=== PATIENT | female | born 1980 | race Hispanic/Latino ===

== ENCOUNTER 2017-02-21 18:42 | Emergency (ER) | payer OTHER ==
[~2017-02-21] VITALS: Ht 154.9 cm; Wt 145.4 kg
[2017-02-21 19:07] VITALS: BP 126/88; PULSE 75; RESP 20; O2SAT 99
--- NOTE | 2017-02-21 19:26 | ED.REPORT ---
HPI-Headache Date of Service February 21, 2017 ED Provider: Darrius BedoyaO. A 36 year old female with a history of migraines presents to the ED with a headache onset 11:00 this morning. Associated symptoms include photophobia, nausea, and vomiting. The patient denies fever, cough, or other symptoms. This headache is similar to previous migraines. Nursing Notes Stated Complaint: MIGRAINE, VOMITING Chief Complaint: Headache Nursing Notes Reviewed: Yes Allergies: Coded Allergies: No Known Allergies (Verified Allergy, Unknown, 10/13/04) Uncoded Allergies: No Known Allergies (Allergy, Unknown, 10/13/04) General Time Seen by MD: 19:25 Chief Complaint Headache Hx Obtained From: Patient Arrived By: Walk-in Sudden in Onset?: No Onset Occurred: 9 - 12 hours ago Symptom Duration: Since onset Location: : Generalized Quality: Painful Severity: Current: Moderate Severity: Maximum: Moderate Pertinent Negative: Relieved by nothing Related History: Reports: Headache, migraine hx Recent Healthcare: No recent doctor visit Similar Sx Previous: Yes Past Medical History Past Medical History Migraines Past Surgical History Reports: Cholecystectomy Smoking History Unknown if Ever Smoker Social History Other Social History: Good social support Ambulatory Status Independent Review of Systems Constitutional: Denies: Fever Eyes: Reports: Photophobia GI: Reports: Nausea, Vomiting, Denies: Diarrhea Neurologic: Reports: Headache Complete sys rev & neg: except as marked. Respiratory: Denies: Non-productive cough, Shortness of breath Physical Exam Physical Exam Notes: 4 mm no nuchal rifgidity Initial Vital Signs Vital Signs (First) Date Time Temp Pulse Resp B/P Pulse Ox O2 Delivery O2 Flow Rate FiO2 02/21/17 19:07 36.7 75 20 126/88 99 02/21/17 21:24 Room Air Initial VS: Reviewed ENT: Conjunctiva normal, No scleral icterus Respiratory: No respiratory distress Skin: Warm, Dry, No cyanosis Psychiatric: Mood/affect normal, Behavior normal, Normal thought content General/Constitutional: Awake, Alert Head / Eyes: Atraumatic, Normocephalic, PERRL (4mm bilateral) Neck: Supple, No meningismus, Full range of motion, Non-tender Neurologic: Oriented X3, Speech NL, No motor deficits, No sensory deficits, CN II - XII intact Interpretation & Diagnostics Lab Results Interpretation Result Diagram: 02/21/17195702/21/171957 Test 02/21/17 19:58 White Blood Count 9.1th/mm3 (3.8-10.1) Red Blood Count 5.10mil/mm3 (3.90-5.20) Hemoglobin 14.9g/dL (12.0-15.6) Hematocrit 45.5% (35.0-46.0) Mean Corpuscular Volume 89.2fL (81-100) Mean Corpuscular Hemoglobin 29.2pg (27.0-35.0) Mean Corpuscular Hemoglobin Concent 32.7% (32.0-37.0) Red Cell Distribution Width 13.9% (12.3-15.4) Platelet Count 251bil/L (150-400) Neutrophils (%) (Auto) 68.7% (40-74) Lymphocytes (%) (Auto) 25.1% (14-46) Monocytes (%) (Auto) 5.0% (4-12) Eosinophils (%) (Auto) 0.7% (0-5) Basophils (%) (Auto) 0.2% (0-3) Sodium Level 140mEq/L (134-144) Potassium Level 4.2mEq/L (3.5-5.2) Chloride Level 100mEq/L (97-108) Carbon Dioxide Level 24mmol/L (18-29) Blood Urea Nitrogen 17mg/dL (6-20) Creatinine 0.47mg/dL (0.57-1.00) Estimat Glomerular Filtration Rate 217mL/min (>59) Glucose Level 148mg/dL (60-99) Calcium Level 9.9mg/dL (8.5-10.1) Total Bilirubin 0.5mg/dL (0.0-1.2) Aspartate Amino Transf (AST/SGOT) 27U/L (0-50) Alanine Aminotransferase (ALT/SGPT) 47U/L (0-32) Alkaline Phosphatase 86U/L (25-150) C-Reactive Protein 1.2mg/dL (0.0-0.5) Total Protein 8.0g/dL (6.4-8.4) Albumin 4.5g/dL (3.4-5.0) HCG Beta Subunit < 0.500mIU/mL Hold Sharp Top Tube Received (Received) CT Head Interpretation IMPRESSION: No acute process. Dictated by: Delio Cotton M.D. on 02/21/2017 at 20:07 Study: Head CT no contrast Interpretation / Wet Read by: Interpret - Radiologist Re-Eval/Medical Decision Med Decision/Clinical Course No high risk features for subarachnoid hemorrhage. The headache was gradual in onset. The headache was not thunderclap. There was no associated syncope. She did not have to take an ambulance to the hospital. She has had many headaches like this in the past. The pain was not maximal at onset. Meningitis considered very unlikely as well. She did not have a fever, leukocytosis or neck stiffness. The temporal onset of her headache is not consistent with meningitis either. A CT scan was performed to evaluate for mass type lesions. No evidence of sinusitis seen either. She was adequately treated and her pain went down to 2 out of 10 with migraine treatments. I will place her on Imitrex and Zofran. Referred to neurology for follow-up. Source of Hx: Old records Re-Evaluation/Progress : Time of Eval: 20:50 )( Patient Status: Condition improved, Pain resolved Evaluation: Mental status normal, Neurologic nonfocal Re-Evaluation/Progress Note: Patient is awake, alert, and pain-free. Discussed with patient CT and lab results, diagnosis, and plan for discharge. Follow-up and return to the ER instructions given. Patient agrees with plan for care and all questions were addressed. Counseled Regarding: Diagnosis, Lab results, Need for follow-up, When/why to return to ED Discharge & Departure Impression: Primary Impression: Headache Headache type: unspecified Headache chronicity pattern: acute headache Intractability: not intractable Qualified Code: R51 - Headache Disposition: Home Discharge Condition All VS Reviewed: Yes Condition: Improved Patient Instructions: Acute Headache (GEN) Additional Instructions: Set up a follow-up with your primary care provider or the referral neurologist. It sounds as if you suffer from migraine headaches. Read the aftercare instructions given. At the onset of your next headache you may take 1 Imitrex and 1 Zofran. If this does not help then take 25 mg of diphenhydramine. Try to get some rest. Do not drive after taking diphenhydramine. Do not drive tonight. If you develop a fever or neck stiffness or any other new or worsening symptoms then we need to see you back here in the emergency department. The CAT scan of your brain was normal. Your laboratory work showed mild hyperglycemia however the remainder of the blood tests were normal. Discuss this with your doctor follow-up as well. Referrals: Rosa Arenas MD (PCP) [facility] Shahid Sorensen MD Attestation Portions of this note were transcribed by Layla Parada. I, Dr. Phillip, personally performed the history, physical exam, and medical decision-making; I reviewed and confirmed the accuracy of the information in the transcribed note. Signed by: Jun Bhardwaj, 02/21/2017, 21:15 copies to: Rosa Arenas MD; [facility]; Shahid Sorensen MD, Todd P DO February 21, 2017 19:26 LAYLA PARADA February 21, 2017 19:40
[2017-02-21] MEDS ORDERED: Dexamethasone 10 mg/mL Inj IM ONE (19:40)
[2017-02-21] MEDS ORDERED: LORazepam 0.5 mg Tablet PO ONE (19:40)
[2017-02-21] MEDS ORDERED: Dexamethasone Inj 10 MG in 0.9% Sodium Chloride-Pha MIX 50 ML IV ONE (19:55)
[2017-02-21 20:08] LABS: BASOPHILS % (AUTO) 0.2 % (0-3); EOSINOPHILS % (AUTO) 0.7 % (0-5); Mean Corpuscular Hemoglobin 29.2 pg (27.0-35.0); Mean Corpuscular Volume 89.2 fL (81-100); NEUTROPHILS % (AUTO) 68.7 % (40-74); Platelet Count 251 bil/L (150-400)
--- NOTE | 2017-02-21 20:09 | DRSVH ---
PROCEDURE: CT BRAIN WITHOUT CONTRAST ([id number]) INDICATIONS: headache TECHNIQUE: Noncontrast 4.5 mm thick angled axial sections acquired from the foramen magnum to the vertex, with c oronal reformats. COMPARISON: None. FINDINGS: Image quality: Excellent. CSF spaces: Basal cisterns are patent. No extra-axial fluid collections. Ventricles are normal in size and shape. Brain: No midline shift. No intracranial masses or hemorrhage. Tilley-white matter interface is norm al. Skull and face: Calvarium and visualized facial bones are intact, without suspicious lesions. Sinuses: Visualized sinuses and mastoids are clear. IMPRESSION: No acute process. Dictated by: Delio Cotton M.D. on 02/21/2017 at 20:07 Approved by: Delio Cotton M.D. on 02/21/2017 at 20:07
[2017-02-21 21:24] VITALS: BP 128/84; PULSE 72; RESP 20; O2SAT 99
== END 2017-02-21 21:25 | disposition home or self-care (01) ==
LOC: SED 18:42
DX: R51 Headache (principal)
CPT/HCPCS: 36415; 70450; 80053; 84702; 85025; 86140; 96374; 96375; 99284; J1100; J1200; J1885

== ENCOUNTER 2017-03-19 10:05 | Emergency (ER) | payer OTHER ==
[~2017-03-19] VITALS: Ht 154.9 cm; Wt 145.4 kg
[2017-03-19 10:12] VITALS: BP 138/88; PULSE 108; RESP 18; O2SAT 99
--- NOTE | 2017-03-19 11:06 | ED.REPORT ---
HPI-Back Pain Under 40 Date of Service Mar 19, 2017 ED Provider: History of Present Illness: 36yo female felt low back strain on 03/17 when she bent over to pickle solution maker blanket at home, upon arising had sharp midline back pain that has debilitated her and forced bedrest. She reports it is markedly painful to move at all. Pain in midline lumbar area, sharp and stabbing, some radiation into bilat buttocks. No bowel/bladder dysfunction. last BM 03/17. No IVDA, fever, or previous hx. of back issues. Nursing Notes Stated Complaint: BACK PAIN Chief Complaint: Back Pain or Injury Allergies: Coded Allergies: No Known Allergies (Verified , 10/13/04) Uncoded Allergies: No Known Allergies (Allergy, Unknown, 10/13/04) General Time Seen by MD: 11:05 Chief Complaint Back pain Hx Obtained From: Patient Arrived By: Wheelchair Sudden in Onset?: Yes Onset Occurred: 2 days ago Caused by: Bending Location: : Spinal lumbar area Severity: Current: Severe Severity: Maximum: Severe Associated with: Denies: Dysuria, Fever, Frequency, Incontinence bladder, Incontinence bowel, Numbness left low ext, Numbness right low ext, Weakness left lower ext, Weakness right lower ext Pertinent Negative: Pt denies other symptoms Recent Healthcare: No recent doctor visit Similar Sx Previous: No Risk Factors TAD Risk Stratification Risk factors reviewed Epidural Hematoma Risk Stratif No risk factors Epidural Abscess Risk Stratifi No risk factors Past Medical History Past Medical History Migraines Reports: Morbid Obesity Past Surgical History Reports: Cholecystectomy Smoking History Unknown if Ever Smoker Social History Other Social History: Good social support Ambulatory Status Independent Review of Systems Constitutional: Denies: Chills, Fever Respiratory: Denies: Shortness of breath Cardiovascular: Denies: Chest pain GI: Denies: Abdominal pain Musculoskeletal: Reports: Back pain Neurologic: Reports: Problem walking (due to pain), Denies: Numbness Physical Exam Initial Vital Signs Vital Signs (First) Date Time Temp Pulse Resp B/P Pulse Ox O2 Delivery O2 Flow Rate FiO2 03/19/17 10:12 36.0 108 18 138/88 99 Room Air Initial VS: Reviewed General/Constitutional: Awake, Alert, Not toxic appearing Appearance / Presentation: Positive: Obese, morbidly Flank / Spine / Paraspinal: Positive: Lumbar paraspinal tend... (Mid), Negative: Flank tender L, Flank tender R Muscle Spasm / ROM: Positive: ROM decrease - severe Straight Leg Raise: Positive: Strt leg raise + L 30 deg, Strt leg raise + R 30 deg Neurologic: Oriented X3, Speech NL, No motor deficits, No sensory deficits, CN II - XII intact, Reflexes equal bilat pain and body habitus inhibits exam. Interpretation & Diagnostics Lab Results Interpretation Result Diagram: 03/19/17 1035 03/19/17 1035 Test 03/19/17 10:35 White Blood Count 8.0th/mm3 (3.8-10.1) Red Blood Count 5.01mil/mm3 (3.90-5.20) Hemoglobin 14.9g/dL (12.0-15.6) Hematocrit 44.5% (35.0-46.0) Mean Corpuscular Volume 88.8fL (81-100) Mean Corpuscular Hemoglobin 29.7pg (27.0-35.0) Mean Corpuscular Hemoglobin Concent 33.5% (32.0-37.0) Red Cell Distribution Width 13.8% (12.3-15.4) Platelet Count 253bil/L (150-400) Neutrophils (%) (Auto) 63.8% (40-74) Lymphocytes (%) (Auto) 26.5% (14-46) Monocytes (%) (Auto) 8.3% (4-12) Eosinophils (%) (Auto) 0.9% (0-5) Basophils (%) (Auto) 0.1% (0-3) Urine Color Yellow (YELLOW) Urine Appearance Hazy (CLEAR,HAZY) Urine pH 5.5 (5.0-8.0) Urine Specific Shiro 1.025 (1.003-1.035) Urine Protein Negativemg/dL (NEG,TRACE) Urine Glucose (UA) Negativemg/dL (NEGATIVE) Urine Ketones Negativemg/dL (NEGATIVE) Urine Occult Blood Negative (NEGATIVE) Urine Nitrite Negative (NEGATIVE) Urine Bilirubin Negative (NEGATIVE) Urine Urobilinogen Normalmg/dL (NORMAL) Urine Leukocyte Esterase Negative (NEGATIVE) Urine RBC 0-2/hpf (0-2) Urine WBC 0-5/hpf (0-5) Urine Epithelial Cells Moderate/hpf (NONE-MOD) Urine Crystals None seen (NONE SEEN) Urine Bacteria Many/hpf (NONE-FEW) Urine Hyaline Casts None/lpf (NONE) Urine Granular Casts None seen (NONE SEEN) Urine Waxy Casts None seen (NONE SEEN) Urine Red Blood Cell Casts None seen (NONE SEEN) Urine White Blood Cell Casts None seen (NONE SEEN) Urine Mucus None seen (None Seen) Urine Trichomonas None seen (NONE SEEN) Urine Yeast None (NONE SEEN) Urinalysis Comment None Urine Culture Reflexed Indicated Sodium Level 135mEq/L (134-144) Potassium Level 4.2mEq/L (3.5-5.2) Chloride Level 99mEq/L (97-108) Carbon Dioxide Level 22mmol/L (18-29) Blood Urea Nitrogen 16mg/dL (6-20) Creatinine 0.55mg/dL (0.57-1.00) Estimat Glomerular Filtration Rate 181mL/min (>59) Glucose Level 126mg/dL (60-99) Calcium Level 9.4mg/dL (8.5-10.1) Total Bilirubin 0.4mg/dL (0.0-1.2) Aspartate Amino Transf (AST/SGOT) 27U/L (0-50) Alanine Aminotransferase (ALT/SGPT) 43U/L (0-32) Alkaline Phosphatase 82U/L (25-150) Total Protein 7.5g/dL (6.4-8.4) Albumin 4.1g/dL (3.4-5.0) Hold Sharp Top Tube Received (Received) X-Ray Interpretation Xray Interpretation: PROCEDURE: MRI LUMBAR SPINE WITH AND WITHOUT CONTRAST ([id number]) INDICATIONS: Midline lumbar pain TECHNIQUE: Noncontrast sagittal T1 spin echo and T2 fast spin echo, sagittal STIR, axial T1 and T2 fast spin echo through the lumbar spine. In cases with scoliosis, additional coronal T2 fast spin echo may be performed. After the administration of contrast, sagittal and axial T1 spin echo with fat saturation through the lumbar spine. COMPARISON: None. FINDINGS: Image quality: Excellent. Alignment and curvature: There is normal bony alignment and curvature. Marrow: Marrow is of normal overall signal. No acute vertebral body compression fractures. No suspicious marrow enhancement. Spinal cord: Conus medullaris terminates at the L1 level. Visualized spinal cord demonstrates normal signal, without suspicious enhancement. Paraspinous soft tissues: No paravertebral masses or abnormal enhancement. L1-L2: Normal appearance. L2-L3: Normal appearance. L3-L4: Loss of disc signal. Minimal, diffuse disc bulge. No central stenosis. No neural foraminal narrowing. No neural impingement. L4-L5: Loss of the signal. Minimal, diffuse disc bulge. No central stenosis. No neural foraminal narrowing. No neural impingement. Mild bilateral facet hypertrophy. L5-S1: Disc has a normal appearance. No central stenosis. No neural foraminal narrowing. No neural impingement. Mild bilateral facet hypertrophy. Small synovial cyst projects off the lateral margin of the left facet. IMPRESSION: 1. Mild L3-L4 and L4-L5 degenerative disease. 2. Mild L4-L5 and L5-S1 facet arthropathy. 3. No central stenosis. 4. No neural foraminal narrowing 5. No neural impingement. Dictated by: Karin Ornelas MD, PhD on 03/19/2017 at 13:00 Approved by: Karin Ornelas MD, PhD on 03/19/2017 at 13:05 Re-Eval/Medical Decision Med Decision/Clinical Course Pt's pain reduced in ED with medication. MRI shows diffuse lumbar bulging discs without cord impingement. Will treat conservatively and encouraged f/u with PCP. S/s for which to return to ED discussed. Pt. acknowledged understanding of treatment plan. Counseled Regarding: Diagnosis, Lab results, Need for follow-up, When/why to return to ED Discharge & Departure Shift Change Sign-Out Response to Therapy: Improved Impression: Primary Impression: Lumbosacral strain Encounter type: initial encounter Qualified Code: S39.012A - Strain of muscle, fascia and tendon of lower back, initial encounter Additional Impression: Bulging lumbar disc Disposition: Home Patient Instructions: Acute Low Back Pain (ED) Additional Instructions: Rest, local heat, elevate knees to chest. Take meds as needed Follow up with your PCP next week for recheck. Return to ER if anything worsens. Referrals: [facility] EDSupervising Provider for APC: Bao Mae Christopher R PAC Mar 19, 2017 11:06
[2017-03-19] MEDS ORDERED: HYDROcodone-APAP 5-325 mg Tablet PO ONE (11:25)
[2017-03-19 11:52] LABS: BASOPHILS % (AUTO) 0.1 % (0-3); EOSINOPHILS % (AUTO) 0.9 % (0-5); MONOCYTES % (AUTO) 8.3 % (4-12); Mean Corpuscular Hemoglobin 29.7 pg (27.0-35.0); Mean Corpuscular Volume 88.8 fL (81-100); NEUTROPHILS % (AUTO) 63.8 % (40-74); Platelet Count 253 bil/L (150-400)
[2017-03-19 12:01] LABS: APPEARANCE,URINE HAZY (CLEAR,HAZY); COLOR,URINE YELLOW (YELLOW); OCCULT BLOOD,URINE NEGATIVE (NEGATIVE); PH,URINE 5.5 (5.0-8.0); UROBILINOGEN,URINE NORMAL (NORMAL)
--- NOTE | 2017-03-19 13:06 | DRSVH ---
PROCEDURE: MRI LUMBAR SPINE WITH AND WITHOUT CONTRAST ([id number]) INDICATIONS: Midline lumbar pain TECHNIQUE: Noncontrast sagittal T1 spin echo and T2 fast spin echo, sagittal STIR, axial T1 and T2 fast spin ech o through the lumbar spine. In cases with scoliosis, additional coronal T2 fast spin echo may be per formed. After the administration of contrast, sagittal and axial T1 spin echo with fat saturation th rough the lumbar spine. COMPARISON: None. FINDINGS: Image quality: Excellent. Alignment and curvature: There is normal bony alignment and curvature. Marrow: Marrow is of normal overall signal. No acute vertebral body compression fractures. No susp icious marrow enhancement. Spinal cord: Conus medullaris terminates at the L1 level. Visualized spinal cord demonstrates gordon l signal, without suspicious enhancement. Paraspinous soft tissues: No paravertebral masses or abnormal enhancement. L1-L2: Normal appearance. L2-L3: Normal appearance. L3-L4: Loss of disc signal. Minimal, diffuse disc bulge. No central stenosis. No neural foraminal sheree rowing. No neural impingement. L4-L5: Loss of the signal. Minimal, diffuse disc bulge. No central stenosis. No neural foraminal narr owing. No neural impingement. Mild bilateral facet hypertrophy. L5-S1: Disc has a normal appearance. No central stenosis. No neural foraminal narrowing. No neural im pingement. Mild bilateral facet hypertrophy. Small synovial cyst projects off the lateral margin of t he left facet. IMPRESSION: 1. Mild L3-L4 and L4-L5 degenerative disease. 2. Mild L4-L5 and L5-S1 facet arthropathy. 3. No central stenosis. 4. No neural foraminal narrowing 5. No neural impingement. Dictated by: Karin Ornelas MD, PhD on 03/19/2017 at 13:00 Approved by: Karin Ornelas MD, PhD on 03/19/2017 at 13:05
[2017-03-19] MEDS ORDERED: CYCL10TA9 PO (13:53)
[2017-03-19] MEDS ORDERED: NAPR500T PO (13:53)
[2017-03-19 14:03] VITALS: BP 138/71; PULSE 79; RESP 18; O2SAT 100
== END 2017-03-19 14:03 | disposition home or self-care (01) ==
LOC: SED 10:05
DX: S39.012A Strain of muscle, fascia and tendon of lower back, initial encounter (principal); X50.0XXA Overexertion from strenuous movement or load, initial encounter; Y93.89 Activity, other specified; Y92.019 Unspecified place in single-family (private) house as the place of occurrence of the external cause; Y99.8 Other external cause status; M51.26 Other intervertebral disc displacement, lumbar region
CPT/HCPCS: 36415; 72158; 80053; 81000; 81025; 85025; 87086; 87088; 99284; A9585